=== PATIENT | female | born 1950 | race Caucasian/White ===

== ENCOUNTER 2021-08-19 16:42 | Emergency (ER) | payer MEDICARE, OTHER, BC ==
[2021-08-19] MEDS ORDERED: Sodium Chloride 0.9% 10 ML Syringe FLUSH PRN (16:46)
[2021-08-19] MEDS ORDERED: Sodium Chloride 0.9% 1,000 ML IV SCH (17:00)
== END 2021-08-19 19:52 | disposition home or self-care (01) ==
LOC: JD.ED 16:42
DX: F10.129 Alcohol abuse with intoxication, unspecified (principal); Y90.5 Blood alcohol level of 100-119 mg/100 ml
CPT/HCPCS: 36415; 70450; 80053; 80306; 80307; 83735; 84484; 85025; 86140; 99285; J7030

== ENCOUNTER 2023-06-20 15:05 | Observation (INO) | payer MEDICARE, OTHER, BC ==
[2023-06-20] MEDS ORDERED: Sodium Chloride 0.9% 10 ML Syringe FLUSH PRN (15:20)
[2023-06-20] MEDS ORDERED: Albuterol/Ipratropium 3.0-0.5 MG/3 ML Neb Soln NEB ONE (15:24)
[2023-06-20] MEDS ORDERED: methylPREDNISolone Sodium Succinate 125 MG/2 ML SDV IVPUSH ONE (15:24)
[2023-06-20] MEDS ORDERED: Magnesium Sulfate (4.06 MEQ/ML) 5 GM/10 ML SDV IV ONE ×2 (15:26→16:15)
[2023-06-20] MEDS ORDERED: EPINEPHrine 0.3 MG/0.3 ML Pen Autoinjector IM ONE (15:30)
[2023-06-20] MEDS ORDERED: EPINEPHrine 1 MG/ML SDV ONE (15:37)
[2023-06-20] MEDS ORDERED: Magnesium Sulfate/Water 2 GM in Premix Bag 1 BAG IV ONE (15:45)
[2023-06-20] MEDS ORDERED: EPINEPHrine 1 MG/ML SDV IM ONE (15:45)
[2023-06-20 16:02] LABS: BASOPHILS PERCENT AUTO 0.6 % (0.0-1.0); EOSINOPHILS ABSOLUTE AUTO 0.3 K/mm3 (0.0-0.4); EOSINOPHILS PERCENT AUTO 4.5 % (0.0-6.0); HEMATOCRIT 42.8 % (37.0-47.0); HEMOGLOBIN 13.8 gm/dl (12.0-16.0); IMMATURE GRAN ABSOLUTE AUTO 0.03 K/mm3 (0.00-0.05); IMMATURE GRAN PERCENT AUTO 0.5 % (0.0-0.4); LYMPHOCYTES ABSOLUTE AUTO 1.8 K/mm3 (1.0-4.8); LYMPHOCYTES PERCENT AUTO 28.2 % (24.0-44.0); MEAN CORPUSCULAR HEMOGLOBIN 31.2 pg (28.0-32.0); MEAN CORPUSCULAR HGB CONC 32.2 g/dl (32.0-36.0); MEAN CORPUSCULAR VOLUME 96.8 fl (83.0-99.0); MEAN PLATELET VOLUME 9.8 fl (9.4-12.3); MONOCYTES ABSOLUTE AUTO 0.5 K/mm3 (0.0-0.8); MONOCYTES PERCENT AUTO 8.2 % (0.0-8.0); NEUTROPHILS ABSOLUTE AUTO 3.6 K/mm3 (1.8-7.7); PLATELET COUNT,PLT 365 K/mm3 (150-400); RED BLOOD CELL COUNT 4.42 M/mm3 (4.10-5.30); WHITE BLOOD CELL COUNT,WBC 6.21 K/mm3 (3.9-11.3)
[2023-06-20 16:19] LABS: INR 0.96; PROTHROMBIN TIME 10.3 SECONDS (9.7-12.0)
[2023-06-20 16:20] LABS: D-DIMER QUANTITATIVE 0.46 mg/L (0.19-0.50)
[2023-06-20 16:35] LABS: ANION GAP 16.3 (5-15); POTASSIUM,K 4.3 mEq/L (3.5-5.1)
[2023-06-20 16:36] LABS: ALBUMIN 3.9 g/dl (3.4-5.0); BILIRUBIN TOTAL 0.3 mg/dL (0.2-1.0); CALCIUM 10.2 mg/dL (8.5-10.1); EST CRCL DRUG DOSING (CG) 41.4 mL/min; MAGNESIUM 1.9 mg/dL (1.8-2.4); PROTEIN TOTAL,TP 7.9 g/dl (6.4-8.2)
[2023-06-20] MEDS ORDERED: Ondansetron 4 MG/2 ML SDV IVPUSH ONE (17:01)
[2023-06-20 17:59] LABS: CORONAVIRUS COVID-19 NAA NEGATIVE (NEGATIVE); INFLUENZA A NAA NEGATIVE (NEGATIVE); RESPIRATORY SYNCYTIAL VIR NAA NEGATIVE (NEGATIVE)
[2023-06-20] MEDS ORDERED: Ondansetron 4 MG Tab.DIS PO PRN (19:45)
[2023-06-20] MEDS ORDERED: Acetaminophen 325 MG Tab PO PRN (19:45)
[2023-06-20] MEDS ORDERED: Cyclobenzaprine 10 MG Tab PO PRN (19:51)
[2023-06-20 20:24] LABS: BASOPHILS PERCENT AUTO 0.3 % (0.0-1.0); EOSINOPHILS PERCENT AUTO 0.1 % (0.0-6.0); HEMATOCRIT 40.7 % (37.0-47.0); HEMOGLOBIN 13.4 gm/dl (12.0-16.0); IMMATURE GRAN ABSOLUTE AUTO 0.04 K/mm3 (0.00-0.05); IMMATURE GRAN PERCENT AUTO 0.3 % (0.0-0.4); LYMPHOCYTES ABSOLUTE AUTO 0.5 K/mm3 (1.0-4.8); LYMPHOCYTES PERCENT AUTO 4.4 % (24.0-44.0); MEAN CORPUSCULAR HEMOGLOBIN 31.7 pg (28.0-32.0); MEAN CORPUSCULAR HGB CONC 32.9 g/dl (32.0-36.0); MEAN CORPUSCULAR VOLUME 96.2 fl (83.0-99.0); MEAN PLATELET VOLUME 9.3 fl (9.4-12.3); MONOCYTES ABSOLUTE AUTO 0.1 K/mm3 (0.0-0.8); MONOCYTES PERCENT AUTO 0.6 % (0.0-8.0); NEUTROPHILS ABSOLUTE AUTO 10.9 K/mm3 (1.8-7.7); NEUTROPHILS PERCENT AUTO 94.3 % (41.0-71.0); PLATELET COUNT,PLT 316 K/mm3 (150-400); RED BLOOD CELL COUNT 4.23 M/mm3 (4.10-5.30); WHITE BLOOD CELL COUNT,WBC 11.53 K/mm3 (3.9-11.3)
[2023-06-20 20:38] LABS: ANION GAP 17.2 (5-15); BUN/CREATININE RATIO 21.3 (14-18); CALCIUM 9.7 mg/dL (8.5-10.1); CREATININE 0.8 mg/dL (0.55-1.02); EST CRCL DRUG DOSING (CG) 51.75 mL/min; POTASSIUM,K 4.2 mEq/L (3.5-5.1)
[2023-06-20] MEDS: Enoxaparin 40 MG/0.4 ML Syringe SUBCUT SCH (20:56)
[2023-06-20] MEDS: busPIRone 15 MG Tab PO SCH (22:06)
[2023-06-20] MEDS: Gabapentin 100 MG Cap PO SCH (22:06)
[2023-06-20] MEDS: Albuterol/Ipratropium 3.0-0.5 MG/3 ML Neb Soln NEB PRN (22:25)
[2023-06-21] MEDS: Albuterol/Ipratropium 3.0-0.5 MG/3 ML Neb Soln NEB PRN (04:20)
[2023-06-21] MEDS: Acetaminophen/HYDROcodone 325-5 MG Tab PO PRN ×2 (04:36→09:28)
[2023-06-21] MEDS ORDERED: predniSONE 20 MG Tab PO SCH (07:00)
[2023-06-21] MEDS ORDERED: Calcium Carbonate 600 MG Tab PO SCH (09:00)
[2023-06-21] MEDS ORDERED: Pantoprazole 40 MG Tab.CR PO SCH (09:00)
[2023-06-21] MEDS ORDERED: Montelukast 10 MG Tab PO SCH (09:00)
[2023-06-21] MEDS ORDERED: DULoxetine 30 MG Cap PO SCH (09:00)
[2023-06-21] MEDS: busPIRone 15 MG Tab PO SCH (09:02)
[2023-06-21] MEDS: Enoxaparin 40 MG/0.4 ML Syringe SUBCUT SCH (09:03)
[2023-06-21] MEDS: Gabapentin 100 MG Cap PO SCH (09:03)
== END 2023-06-21 12:46 | disposition home or self-care (01) ==
LOC: JD.ED 15:05 → JD.MS 19:45
PROVIDERS: ADMIT Student in an Organized Health Care Education/Training Program; ATTEND Student in an Organized Health Care Education/Training Program
DX: J45.901 Unspecified asthma with (acute) exacerbation (principal); J96.01 Acute respiratory failure with hypoxia; R05.9 Cough, unspecified; Z79.899 Other long term (current) drug therapy; Z87.891 Personal history of nicotine dependence
CPT/HCPCS: 0241U; 36415; 71045; 80048; 80053; 82977; 83735; 83880; 84484; 85025; 85379; 85610; 93005; 94640; 94760; 94761; 96365; 96372; 96375; 99285; A9270; G0378; J0171; J1650; J2405; J2930; J3475; J3490; J7512; 93010; 99222; 99239; J7620-GY